=== PATIENT | female | born 1980 | race Caucasian/White ===

== ENCOUNTER → 2017-09-08 | Emergency (ER) | payer OTHER ==
[~2017-09-08] VITALS: Ht 172.7 cm; Wt 63.5 kg
[~2017-09-08] MED LIST: BACTRIM DS TAB1 EACH PO; MACROBID 100 M100 M2 PO; NOHOMEMEDICATIONS
--- NOTE | ~2017-09-08 | EKG ---
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
[2017-09-08 01:17] LABS: URINE BILIRUBIN NEGATIVE (Negative); URINE BLOOD TRACE (Negative); URINE COLOR YELLOW; URINE GLUCOSE-RANDOM* NEGATIVE (Negative); URINE KETONES 1+ (Negative); URINE PROTEIN (DIPSTICK) 2+ (Negative); URINE SPECIFIC GRAVITY >= 1.030 (1.003-1.035)
[2017-09-08 01:21] LABS: ABSOLUTE NEUTROPHILS 8.2 thou/uL (1.4-8.2); BASOPHILS 0.8 % (0.0-2.0); EOSINOPHILS 1.5 % (0.0-3.0); HEMATOCRIT 35.5 % (37.0-47.0); HEMOGLOBIN 11.6 gm/dL (12.0-15.0); LYMPHOCYTES 14.7 % (24.0-44.0); MCH 28.2 pg (26.0-34.0); MCHC 32.7 g/dL (28.0-37.0); MCV 86.2 fL (80.0-100.0); MONOCYTES 7.8 % (1.0-8.0); PLATELET COUNT 317 thou/uL (150-400); POLYS 75.2 % (36.0-66.0); RBC 4.11 mil/uL (4.20-5.00); RDW 19.4 % (10.5-14.5); WBC 10.9 thou/uL (4.0-11.0)
[2017-09-08 01:23] LABS: URINE LEUKOCYTES-REFLEX 2+ (Negative)
[2017-09-08 01:24] LABS: AMP/METHAMP POSITIVE (Negative); BARBITURATES Negative (Negative); BENZODIAZEPINES Negative (Negative); COCAINE Negative (Negative); METHADONE Negative (Negative); OPIATES Negative (Negative); PCP Negative (Negative); THC POSITIVE (Negative)
[2017-09-08 01:25] LABS: ANION GAP 12 mmol/L (7-16); BUN 14 mg/dL (7-18); CALCIUM 8.9 mg/dL (8.5-10.1); CHLORIDE 105 mmol/L (98-107); CO2 23 mmol/L (21-32); CREATININE 0.9 mg/dL (0.6-1.0); GLUCOSE 97 mg/dL (74-106); POTASSIUM 3.3 mmol/L (3.5-5.1); SODIUM 140 mmol/L (136-145)
[2017-09-08 01:31] LABS: CASTS None Seen /LPF (None Seen); SQUAMOUS >10 Many /LPF (0-3)
[2017-09-08 01:32] LABS: AMORPHOUS URATES Moderate /LPF (None Seen); CRYSTALS None Seen /LPF (None Seen); URINE RBC 0-2 Rare /HPF (0-2); URINE WBC-REFLEX >25 Many /HPF (0-5)
[2017-09-08 01:33] LABS: MANUAL DIFF NO
[2017-09-08 01:34] LABS: ALBUMIN 3.8 g/dL (3.4-5.0); ALKALINE PHOSPHATASE 73 U/L (46-116); MAGNESIUM 1.5 mg/dL (1.8-2.4); SGOT 105 U/L (15-37); SGPT 65 U/L (30-65); TOTAL BILIRUBIN 0.5 mg/dL (<0.1-1.0); TOTAL PROTEIN 6.6 g/dL (6.4-8.2); TROPONIN-I < 0.04 ng/mL (<0.04-0.07)
[2017-09-08 07:33] VITALS: BP 132/76
== END ==
LOC: ER 00:30
PROVIDERS: Emergency Medicine
DX: F15.10 Other stimulant abuse, uncomplicated (principal); E86.0 Dehydration; E83.42 Hypomagnesemia; N39.0 Urinary tract infection, site not specified; F17.210 Nicotine dependence, cigarettes, uncomplicated; F10.99 Alcohol use, unspecified with unspecified alcohol-induced disorder

== ENCOUNTER 2018-03-31 03:16 | Emergency (ER) | payer OTHER ==
[~2018-03-31] VITALS: Ht 170.2 cm; Wt 61.2 kg
[2018-03-31 06:00] LABS: ABSOLUTE NEUTROPHILS 5.1 thou/uL (1.4-8.2); BASOPHILS 0.6 % (0.0-2.0); EOSINOPHILS 1.8 % (0.0-3.0); HEMATOCRIT 39.3 % (37.0-47.0); HEMOGLOBIN 13.1 gm/dL (12.0-15.0); LYMPHOCYTES 26.7 % (24.0-44.0); MCH 29.1 pg (26.0-34.0); MCHC 33.2 g/dL (28.0-37.0); MCV 87.5 fL (80.0-100.0); MONOCYTES 5.5 % (1.0-8.0); PLATELET COUNT 374 thou/uL (150-400); POLYS 65.4 % (36.0-66.0); RBC 4.49 mil/uL (4.20-5.00); RDW 17.2 % (10.5-14.5); WBC 7.8 thou/uL (4.0-11.0)
[2018-03-31 06:06] LABS: ANION GAP 13 mmol/L (7-16); BUN 12 mg/dL (7-18); CALCIUM 8.9 mg/dL (8.5-10.1); CHLORIDE 103 mmol/L (98-107); CO2 22 mmol/L (21-32); CREATININE 0.8 mg/dL (0.6-1.0); GLUCOSE 87 mg/dL (74-106); POTASSIUM 3.7 mmol/L (3.5-5.1); SODIUM 138 mmol/L (136-145)
[2018-03-31 06:11] LABS: ALBUMIN 3.8 g/dL (3.4-5.0); SALICYLATE 3.1 mg/dL (2.8-20.0); SGOT 46 U/L (15-37); SGPT 43 U/L (30-65); TOTAL BILIRUBIN 0.5 mg/dL (<0.1-1.0); TOTAL PROTEIN 7.3 g/dL (6.4-8.2)
[2018-03-31 07:29] LABS: URINE BILIRUBIN NEGATIVE (Negative); URINE BLOOD NEGATIVE (Negative); URINE CLARITY CLEAR; URINE COLOR YELLOW; URINE GLUCOSE-RANDOM* NEGATIVE (Negative); URINE KETONES NEGATIVE (Negative); URINE LEUKOCYTES-REFLEX NEGATIVE (Negative); URINE NITRITE-REFLEX NEGATIVE (Negative); URINE PROTEIN (DIPSTICK) NEGATIVE (Negative); URINE SPECIFIC GRAVITY >= 1.030 (1.005-1.035); URINE UROBILINOGEN 0.2 E.U./dl (0.2-1.0)
[2018-03-31 07:39] LABS: AMP/METHAMP POSITIVE (Negative); BARBITURATES Negative (Negative); BENZODIAZEPINES Negative (Negative); COCAINE Negative (Negative); METHADONE Negative (Negative); OPIATES Negative (Negative); PCP Negative (Negative)
[2018-03-31 08:16] VITALS: BP 110/74
== END 2018-03-31 08:20 | disposition home or self-care (01) ==
LOC: ER 03:16
PROVIDERS: Emergency Medicine
DX: F22 Delusional disorders (principal); F10.129 Alcohol abuse with intoxication, unspecified; F15.10 Other stimulant abuse, uncomplicated; F17.210 Nicotine dependence, cigarettes, uncomplicated

== ENCOUNTER 2019-04-10 15:28 | Emergency (ER) | payer OTHER ==
[~2019-04-10] VITALS: Ht 175.3 cm; Wt 56.7 kg
[2019-04-10 16:19] LABS: ABSOLUTE NEUTROPHILS 6.6 thou/uL (1.4-8.2); BASOPHILS 0.6 % (0.0-2.0); EOSINOPHILS 1.6 % (0.0-3.0); HEMATOCRIT 41.8 % (37.0-47.0); LYMPHOCYTES 24.9 % (24.0-44.0); MCH 28.9 pg (26.0-34.0); MCHC 33.5 g/dL (28.0-37.0); MCV 86.3 fL (80.0-100.0); MONOCYTES 5.9 % (1.0-8.0); PLATELET COUNT 356 thou/uL (150-400); RBC 4.84 mil/uL (4.20-5.00); RDW 15.8 % (10.5-14.5); WBC 9.9 thou/uL (4.0-11.0)
[2019-04-10 16:20] LABS: URINE BLOOD NEGATIVE (Negative); URINE CLARITY SL CLOUDY; URINE COLOR YELLOW; URINE GLUCOSE-RANDOM* NEGATIVE (Negative); URINE KETONES TRACE (Negative); URINE LEUKOCYTES-REFLEX NEGATIVE (Negative); URINE NITRITE-REFLEX NEGATIVE (Negative); URINE PROTEIN (DIPSTICK) 2+ (Negative); URINE SPECIFIC GRAVITY >= 1.030 (1.005-1.035)
[2019-04-10 16:21] LABS: ICTOTEST (BILI CONFIRMATORY) Negative (Negative); URINE BILIRUBIN NEGATIVE (Negative)
[2019-04-10 16:28] LABS: AMORPHOUS URATES Many /LPF (None Seen); HYALINE CASTS 4-10 Moderate /LPF (None Seen); SQUAMOUS None Seen /LPF (0-3)
[2019-04-10 16:29] LABS: BACTERIA-REFLEX 1-9 Few /HPF (None Seen); URINE RBC 0-2 Rare /HPF (0-2); URINE WBC-REFLEX 0-5 Rare /HPF (0-5)
[2019-04-10 16:30] LABS: ANION GAP 11 mmol/L (7-16); BUN 21 mg/dL (7-18); CALCIUM 10.2 mg/dL (8.5-10.1); CHLORIDE 100 mmol/L (98-107); CO2 27 mmol/L (21-32); CREATININE 1.2 mg/dL (0.6-1.0); GLUCOSE 83 mg/dL (74-106); POTASSIUM 4.3 mmol/L (3.5-5.1); SODIUM 138 mmol/L (136-145)
[2019-04-10 16:31] LABS: AMP/METHAMP Negative (Negative); BARBITURATES Negative (Negative); BENZODIAZEPINES Negative (Negative); COCAINE Negative (Negative); METHADONE Negative (Negative); OPIATES Negative (Negative); PCP Negative (Negative)
[2019-04-10 16:37] LABS: ALBUMIN 4.4 g/dL (3.4-5.0); SALICYLATE < 2.8 mg/dL (2.8-20.0); SGOT 39 U/L (15-37); SGPT 39 U/L (30-65); TOTAL BILIRUBIN 0.6 mg/dL (<0.1-1.0); TOTAL PROTEIN 8.3 g/dL (6.4-8.2)
[2019-04-10 16:57] LABS: AMP/METHAMP POSITIVE (Negative); BARBITURATES Negative (Negative); BENZODIAZEPINES Negative (Negative); COCAINE Negative (Negative); METHADONE Negative (Negative); OPIATES Negative (Negative); PCP Negative (Negative)
--- NOTE | 2019-04-10 17:10 | EKG ---
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: : 1980 Requested By: Leelee Blanco Order Number: [id number] MD: Sabino Hairston Measurements Intervals [place] Rate: 85 P: 52 [place]: 111 QRS: 75 QRSD: 85 T: 64 QT: 371 QTc: 442 Interpretive Statements Sinus rhythm Atrial premature complex Borderline short [place] interval Consider left ventricular hypertrophy Baseline wander in lead(s) V1 Compared to ECG 09/08/2017 01:02:42 Atrial premature complex(es) now present Electronically Signed On 04-10-2019 17:10:17 CDT by Sabino Hairston [email or web address] ��������������������������������������������� <ELECTRONICALLY SIGNED> ���������������������������������������� By: Sabino Hairston MD ��������������������������������������������� 04/10/19 1710 00 00 Sabino Hairston MD /EPI
[2019-04-11 11:56] VITALS: BP 122/84
== END 2019-04-11 11:56 | disposition home or self-care (01) ==
LOC: ER 15:28
PROVIDERS: Student in an Organized Health Care Education/Training Program
DX: F15.10 Other stimulant abuse, uncomplicated (principal); R45.1 Restlessness and agitation; F17.210 Nicotine dependence, cigarettes, uncomplicated

== ENCOUNTER 2019-04-23 10:44 | Emergency (ER) | payer OTHER ==
[~2019-04-23] VITALS: Ht 170.2 cm; Wt 57.6 kg
[2019-04-23 11:20] LABS: ABSOLUTE NEUTROPHILS 4.3 thou/uL (1.4-8.2); BASOPHILS 1.2 % (0.0-2.0); EOSINOPHILS 2.9 % (0.0-3.0); HEMATOCRIT 35.8 % (37.0-47.0); HEMOGLOBIN 12.1 gm/dL (12.0-15.0); LYMPHOCYTES 31.4 % (24.0-44.0); MCH 29.4 pg (26.0-34.0); MCHC 33.8 g/dL (28.0-37.0); MCV 87.2 fL (80.0-100.0); MONOCYTES 7.1 % (1.0-8.0); PLATELET COUNT 388 thou/uL (150-400); POLYS 57.4 % (36.0-66.0); RBC 4.11 mil/uL (4.20-5.00); RDW 15.2 % (10.5-14.5); WBC 7.5 thou/uL (4.0-11.0)
[2019-04-23 11:31] LABS: ANION GAP 12 mmol/L (7-16); BUN 12 mg/dL (7-18); CALCIUM 9.5 mg/dL (8.5-10.1); CHLORIDE 105 mmol/L (98-107); CO2 23 mmol/L (21-32); CREATININE 0.7 mg/dL (0.6-1.0); GLUCOSE 94 mg/dL (74-106); POTASSIUM 3.6 mmol/L (3.5-5.1); SODIUM 140 mmol/L (136-145)
[2019-04-23 11:35] LABS: ALBUMIN 3.8 g/dL (3.4-5.0); SALICYLATE < 2.8 mg/dL (2.8-20.0); SGOT 32 U/L (15-37); SGPT 31 U/L (30-65); TOTAL BILIRUBIN 0.3 mg/dL (<0.1-1.0)
[2019-04-23 12:52] LABS: URINE BILIRUBIN NEGATIVE (Negative); URINE BLOOD NEGATIVE (Negative); URINE CLARITY CLEAR; URINE COLOR YELLOW; URINE GLUCOSE-RANDOM* NEGATIVE (Negative); URINE KETONES NEGATIVE (Negative); URINE LEUKOCYTES NEGATIVE (Negative); URINE NITRITE NEGATIVE (Negative); URINE PROTEIN (DIPSTICK) NEGATIVE (Negative); URINE SPECIFIC GRAVITY >= 1.030 (1.005-1.035); URINE UROBILINOGEN 0.2 E.U./dl (0.2-1.0)
[2019-04-23 13:05] LABS: AMP/METHAMP POSITIVE (Negative); BARBITURATES Negative (Negative); BENZODIAZEPINES Negative (Negative); COCAINE Negative (Negative); METHADONE Negative (Negative); OPIATES Negative (Negative); PCP Negative (Negative)
[2019-04-23 21:25] VITALS: BP 131/62
== END 2019-04-23 21:41 | disposition home or self-care (01) ==
LOC: ER 10:44
PROVIDERS: Physician Assistant
DX: F15.159 Other stimulant abuse with stimulant-induced psychotic disorder, unspecified (principal); F17.210 Nicotine dependence, cigarettes, uncomplicated

== ENCOUNTER 2020-07-07 23:26 | Emergency (ER) | payer OTHER ==
[~2020-07-07] VITALS: Ht 170.2 cm; Wt 74.8 kg
[2020-07-07] MEDS ORDERED: BIPOLAR MEDICATION (23:31)
[2020-07-08] MEDS ORDERED: MOBIC15 MG PO (01:42)
[2020-07-08 02:00] VITALS: BP 128/97
== END 2020-07-08 01:45 | disposition home or self-care (01) ==
LOC: ER 23:26
DX: J02.9 Acute pharyngitis, unspecified (principal); F31.9 Bipolar disorder, unspecified; F17.210 Nicotine dependence, cigarettes, uncomplicated